=== PATIENT | male | born 1955 | race Caucasian/White ===

== ENCOUNTER 2017-01-19 10:10 | Day surgery (SDC) | payer OTHER ==
[2017-01-19] MEDS ORDERED: LIDOCAINE 2% (SDV) 5 ML INJ ONE (11:37)
[2017-01-19] MEDS ORDERED: PROPOFOL 60 ML ONE (11:37)
--- NOTE | 2017-01-19 12:09 | OPPN ---
Date/Time of Note Date/Time of Note DATE: 01/19/17 TIME: 12:07 Operative Report Preoperative Diagnosis Screening Postoperative Diagnosis Small transverse colon polyp Internal hemorrhoids Operation/Procedure Performed Colonoscopy and biopsy Provider: DEE SOLER MD Anesthesia Type: MAC Estimated blood loss: none Transfusion Required: no Specimens Colon polyp Grafts/Implants: none Complications: no DEE SOLER MD Jan 19, 2017 12:09
[2017-01-19] MEDS ORDERED: AMLODIPINE (12:11)
[2017-01-19] MEDS ORDERED: ASPIRIN (12:11)
[2017-01-19] MEDS ORDERED: SIMVASTATIN (12:11)
[2017-01-19] MEDS ORDERED: LISINOPRIL (12:11)
[2017-01-19 12:35] VITALS: BP 117/77; PULSE 86; RESP 24
--- NOTE | 2017-01-19 22:32 | GILP ---
DATE OF PROCEDURE: 01/19/2017 PREOPERATIVE DIAGNOSIS: Screening colonoscopy. POSTOPERATIVE DIAGNOSES: 1. Colonoscopy all the way to the cecum. 2. Small transverse colon polyp was removed. 3. Internal hemorrhoids. PROCEDURE PERFORMED: Colonoscopy and biopsy. SURGEON: Sahil Levin MD. INDICATIONS FOR PROCEDURE: Mr. Misbah Massey is a 61-year-old male patient who was scheduled for a screening colonoscopy. The procedure and possible complications were well explained to the patient. He understood and consented to the procedure. DESCRIPTION OF PROCEDURE: Under the influence of anesthesia the colonoscope was carefully introduced in the rectum and under direct vision it was advanced all the way to the cecum. Findings, the patient had a small transverse colon polyp and it was removed using the biopsy forceps. He had internal hemorrhoids. He tolerated the procedure very well, and there was no complication from the procedure. At the end of procedure he was awake with stable vital signs and he was discharged home in the care of his family. IMPRESSION: Please see postoperative diagnoses. PLAN: Next screening colonoscopy in 10 years. Dictated By: MD JESI Malin/marguerite/sallie /Document#: [id number] CC: Sahil Levin MD;*End*
== END 2017-01-19 15:02 | disposition home or self-care (01) ==
LOC: GIL 10:10
PROVIDERS: ATTEND Internal Medicine Gastroenterology
DX: Z12.11 Encounter for screening for malignant neoplasm of colon (principal); K64.8 Other hemorrhoids; I10 Essential (primary) hypertension; E66.01 Morbid (severe) obesity due to excess calories; Z87.891 Personal history of nicotine dependence; D12.3 Benign neoplasm of transverse colon
CPT/HCPCS: 45380; 88305; Z7610

== ENCOUNTER 2018-09-15 17:13 | Emergency (ER) | payer OTHER ==
[~2018-09-15] VITALS: Ht 180.3 cm; Wt 86.1 kg
[~2018-09-15 17:13] MED LIST: AMLODIPINE; ASPIRIN; LISINOPRIL; SIMVASTATIN
[2018-09-15 17:30] VITALS: Ht 180.3 cm; Wt 86.1 kg
[2018-09-15] MEDS ORDERED: ALBUTEROL 0.083% (NEB) 2.5 MG/3 ML AMP NEB STA (19:50)
[2018-09-15] MEDS ORDERED: IPRATROPIUM (NEB) 0.5 MG/2.5 ML AMP NEB STA (19:50)
--- NOTE | 2018-09-15 21:08 | ERD ---
ER Documentation Chief Complaint Chief Complaint sob, nausea, and lightheadedness after doing yard work on tuesday This is a very pleasant 8-year-old male with no past medical history that presents to the emergency department with nausea and shortness of breath for the past 4 days. The patient indicated the shortness of breath occurred after he had been doing yard work. He stated it was a very hot outside and he had exerted himself. He indicated his symptoms improved when he would rest. He denies any swelling of his lower extremities no calf tenderness. Indicates that he also has been experiencing intermittent nausea. He denies any recent prolonged immobilization or hospitalizations. The patient denies a productive cough. He also noticed that he had been experiencing wheezing. He smokes 1 pack of tobacco a day but indicates he is never had any similar symptoms in the past. ROS All systems reviewed and are negative except as per history of present illness. Medications Home Meds Active Scripts Albuterol Sulfate* (Proair HFA*) 8.5 Gm Hfa.aer.ad, 2 PUFF INH Q4H PRN for WHEEZING AND SOB, #1 INHALER Prov:CONCEPCION CASSIDY MD 09/15/18 Reported Medications [Simvastatin] No Conflict Check 01/19/17 [Aspirin] No Conflict Check 01/19/17 [Amlodipine] No Conflict Check 01/19/17 [Lisinopril] No Conflict Check 01/19/17 Allergies Allergies: Coded Allergies: No Known Allergy (Unverified , 01/19/17) PMhx/Soc History of Surgery: Yes (LAP OLIVIA ) Anesthesia Reaction: No Hx Neurological Disorder: No Hx Respiratory Disorders: No Hx Cardiac Disorders: Yes (HTN, HYPERLIPIDEMIA ) Hx Psychiatric Problems: No Hx Miscellaneous Medical Probl: No Hx Alcohol Use: No Hx Substance Use: No Hx Tobacco Use: Yes Smoking Status: Current every day smoker Physical Exam Vitals Vital Signs Date Temp Pulse Resp B/P (MAP) Pulse Ox O2 O2 Flow FiO2 Time Delivery Rate 09/15/18 82 16 128/93 96 Room Air 21:23 (105) 09/15/18 81 18 98 21 20:14 09/15/18 97.7 81 21 135/96 97 Room Air 19:50 (109) 09/15/18 97.9 83 18 144/71 98 17:30 (95) Physical Exam Constitutional:Well-developed. Well-nourished. Patient does not appear to be in any respiratory distress. HEENT:Normocephalic. Atraumatic.Pupils were equal round reactive to light. Moist mucous membranes.No tonsillar exudates. Neck: No nuchal rigidity. No lymphadenopathy. No posterior cervical spine tenderness or step-offs. Respiratory: Not using accessory muscles of respiration.Lungs were clear to auscultation bilaterally. No rhonchi. No rales. Very mild wheezing on and auscultation bilaterally. Wheezing more prominent on the left compared to the right. Cardiovascular: Regular rate regular rhythm.No murmurs. No rubs were appreciated.S1, S2 normal. Distal pulses are palpable 2+ bilaterally. GI: Abdomen was soft. Nontender. Non Distended. No pulsatile abdominal masses or bruits. No rebound. No guarding. Bowel sounds were present and normal. Muscle skeletal: Full range of motion of both the upper and lower extremities bilaterally.Normal muscle tone.No assymetrical calf tenderness or swelling. Skin: No petechia, no purpura. No lesions on the palms or the soles of the feet. No maculopapular rash. NEURO: Patient was alert, awake, orientated x3.No facial droop. Gait observed and normal with no ataxia.Speech had regular rate and rhythm. No focal bisi rological deficits. Result Diagram: 09/15/18195809/15/181958 Results 24 hrs Laboratory Tests Test 09/15/18 19:59 White Blood Count 11.6 10^3/ul Red Blood Count 5.47 10^6/ul Hemoglobin 17.0 g/dl Hematocrit 50.4 % Mean Corpuscular Volume 92.1 fl Mean Corpuscular Hemoglobin 31.1 pg Mean Corpuscular Hemoglobin Concent 33.7 g/dl Red Cell Distribution Width 12.3 % Platelet Count 260 10^3/UL Mean Platelet Volume 9.3 fl Immature Granulocytes % 0.400 % Neutrophils % 70.3 % Lymphocytes % 22.7 % Monocytes % 5.1 % Eosinophils % 1.0 % Basophils % 0.5 % Nucleated Red Blood Cells % 0.0 /100WBC Immature Granulocytes # 0.050 10^3/ul Neutrophils # 8.1 10^3/ul Lymphocytes # 2.6 10^3/ul Monocytes # 0.6 10^3/ul Eosinophils # 0.1 10^3/ul Basophils # 0.1 10^3/ul Nucleated Red Blood Cells # 0.0 10^3/ul Prothrombin Time 11.9 Sec Prothrombin Time Ratio 0.9 INR International Normalized Ratio 0.87 Activated Partial Thromboplast Time 27.8 Sec D-Dimer 482.70 ng/ml D-Dimer Comment Sodium Level 139 mmol/L Potassium Level 5.0 mmol/L Chloride Level 102 mmol/L Carbon Dioxide Level 25 mmol/L Anion Gap 12 Blood Urea Nitrogen 19 mg/dl Creatinine 0.97 mg/dl Est Glomerular Filtrat Rate mL/min > 60 mL/min Glucose Level 181 mg/dl Calcium Level 10.0 mg/dl Total Bilirubin 0.2 mg/dl Direct Bilirubin 0.00 mg/dl Indirect Bilirubin 0.2 mg/dl Aspartate Amino Transf (AST/SGOT) 25 IU/L Alanine Aminotransferase (ALT/SGPT) 21 IU/L Alkaline Phosphatase 77 IU/L Troponin I < 0.012 ng/ml B-Type Natriuretic Peptide 20 PG/ML Total Protein 8.3 g/dl Albumin 4.8 g/dl Globulin 3.50 g/dl Albumin/Globulin Ratio 1.37 Current Medications Medications Dose Sig/[place] Start Time Status Last (Trade) Ordered Route PRN Stop Time Admin Dose Reason Admin Albuterol 5 mg ONCE STAT 09/15/18 DC 09/15/18 (Proventil NEB 19:50 20:14 0.083% (Neb)) 09/15/18 19:53 Ipratropium 0.5 mg ONCE STAT 09/15/18 DC 09/15/18 [place] NEB 19:50 20:14 (Atrovent 09/15/18 19:53 0.02% (Neb)) Procedures/MDM The patient presented to the emergency department with shortness of breath. My differential diagnosis included but was not limited to upper airway obstruction, CHF, pulmonary embolism, cardiac ischemia, pneumonia, pneumothorax, anemia, drug overdose, pulmonary edema, COPD or asthma. The patient no severe electrolyte abnormalities. No physical exam findings to suggest congestive heart failure. Chest radiograph showed no infiltrates or pneumothorax. The patient received a nebulizer treatment of albuterol and his wheezing had completely resolved. The patient with a low pretest probability according to Wells criteria for pulmonary embolism. Therefore I obtained a d-dimer. This was elevated. I did feel the patient would benefit from a CT scan of his chest. However the patient was a medical capacity to make his own decisions and he did state he would prefer to leave AGAINST MEDICAL ADVICE despite me explaining to the patient that this could lead to worsening of symptoms such as . He had received a nebulizer treatment with significant improvement of his symptoms. I did provide an inhaler for the patient has a prescription. I also explained to the patient that he can return to the emergency department anytime if there is any worsening of symptoms. Departure Diagnosis: Primary Impression: Shortness of breath Condition: CONCEPCION Grider MD Sep 15, 2018 21:08
[2018-09-15 21:23] VITALS: BP 128/93; PULSE 82; RESP 16
[2018-09-15] MEDS ORDERED: ALBU8.5H8 INH (21:24)
== END 2018-09-15 21:33 | disposition home or self-care (01) ==
LOC: E/R 17:13
DX: R06.02 Shortness of breath (principal); I10 Essential (primary) hypertension; F17.210 Nicotine dependence, cigarettes, uncomplicated
CPT/HCPCS: 71045; 80053; 83880; 84484; 85025; 85378; 85610; 85730; 87400; 93005; 94664; Z7502; Z7610